=== PATIENT | male | born 1975 | race Caucasian/White ===

== ENCOUNTER 2016-06-12 15:03 | Emergency (ER) | payer OTHER ==
[~2016-06-12] VITALS: Ht 180.3 cm; Wt 93.0 kg
[2016-06-12 15:08] VITALS: BP 138/84
--- NOTE | 2016-06-12 16:03 | ED GENERAL ADULT ---
History of Present Illness General Chief Complaint: Upper Extremity Injury Stated Complaint: RT ARM/SHOULDER PAIN Source: patient Exam Limitations: no limitations Vital Signs & Intake/Output Vital Signs & Intake/Output Vital Signs Date Time Temp Pulse Resp B/P Pulse O2 O2 Flow FiO2 Ox Delivery Rate 06/12 1508 98.7 81 20 138/84 98 Room Air Allergies Uncoded Allergies: POISON YOUNG (10/29/11) Reconcile Medications Meloxicam (Mobic) 15 MG TABLET 1 TAB PO DAILY PRN PAIN Methocarbamol 500 MG TABLET 1 TAB PO DAILY MUSCLE SPASM (Reported) Paroxetine HCl (Paxil) 10 MG TABLET 1 TAB PO DAILY DEPRESSION (Reported) Triage Note: PT STATES HE WAS DRILLING THROUGH [employer] AND CAUGHT REBARB. STATES THE DRILL SPUN HIM AROUND INJURING RIGHT SHOULDER, RIGHT ELBOW AND RIGHT WRIST. NOT WORKERS COMP PER PT Triage Nurses Notes Reviewed? yes Onset: Abrupt Duration: hour(s): Timing: recent history HPI: 06/12/16 41-year-old man who was using a jackhammer, it kicked back and caused sudden severe right shoulder pain. He denies any other complaints. He says that he was using the jackhammer at home. This is not a work related injury. The onset of the symptoms were abrupt, the duration was just today, the severity was significant as his symptoms required him to come to the emergency department for care. On physical exam he has tenderness and decreased range of motion to the right shoulder. X-rays do not show a definite fracture but there is a questionable step off in the glenoid rim. The patient will be placed in a right shoulder immobilizer. He'll follow up with orthopedist this week. Past History Travel History Traveled to [place] past 21 day No Medical History Any Pertinent Medical History? see below for history Psychiatric: anxiety Surgical History Surgical History: non-contributory Psychosocial History What is your primary language Hebrew Tobacco Use: Current Daily Use Daily Tobacco Use Amount/Type: => 5 Cigarettes daily ETOH Use: occasional use Illicit Drug Use: denies illicit drug use Family History Hx Contributory? No Review of Systems Review of Systems Constitutional: Reports: no symptoms. EENTM: Reports: no symptoms. Respiratory: Reports: no symptoms. Cardiovascular: Reports: no symptoms. GI: Reports: no symptoms. Genitourinary: Reports: no symptoms. Musculoskeletal: Reports: see HPI. Skin: Reports: no symptoms. Neurological/Psychological: Reports: no symptoms. Hematologic/Endocrine: Reports: no symptoms. Physical Exam Physical Exam General Appearance: well developed/nourished, alert, awake, anxious, mild distress Head: atraumatic, normal appearance Eyes: Bilateral: normal appearance, PERRL, EOMI. Ears, Nose, Throat: normal pharynx, normal ENT inspection Neck: normal inspection, supple, full range of motion Respiratory: normal breath sounds, chest non-tender, no respiratory distress Cardiovascular: regular rate/rhythm Peripheral Pulses: 4+ radial (R), 4+ radial (L) Back: normal range of motion Extremities: tenderness Neurologic/Psych: no motor/sensory deficits, awake, alert, oriented x 3 Skin: intact, normal color, warm/dry Comments: 06/12/16 The patient was placed in a right shoulder immobilizer. X-ray was significant for a questionable glenoid rim fracture PATIENT: STEPHEN DUMONT PRESENT AGE: 41 PATIENT ACCOUNT NO: [id number] : 73 LOCATION: [facility] ORDERING PHYSICIAN: RENEE BOWLING DO SERVICE DATE: 06/12/16 EXAM TYPE: RAD - XRY-ELBOW 3 OR MORE VIEWS, R; XRY-SHOULDER COMPLETE-RIGHT; XRY- WRIST COMPLETE-RIGHT EXAMINATION: XR RIGHT WRIST, RIGHT SHOULDER AND RIGHT ELBOW CLINICAL INFORMATION: Right upper extremity pain following trauma. COMPARISON: None . TECHNIQUE: Internal rotation, external rotation, transscapular and axillary views of the right shoulder, 5 views in total.. AP, lateral, oblique and navicular views of the right wrist. AP, lateral and bilateral oblique views of the right elbow. FINDINGS: Right shoulder: There is a questionable cortical step-off along the inferior glenoid rim. This finding is nonspecific but could reflect an acute nondisplaced fracture of the inferior glenoid rim versus an osteophyte. No additional definite or suspected fractures of the right shoulder are identified. The right acromioclavicular joint is intact. The visualized portions of the right lung are grossly clear. Right elbow: No acute fracture or dislocation of the right elbow. No significant elbow joint effusion. Right wrist: No acute fracture or dislocation of the right wrist. Carpal alignment appears grossly maintained. The first and second carpal rows are intact. IMPRESSION: 1. Questionable cortical step-off along the inferior glenoid rim. This finding is nonspecific and could reflect a small osteophyte although a nondisplaced fracture within this region cannot be entirely excluded. Consider correlation with a dedicated CT of the right shoulder. 2. No acute fracture or dislocation of the right wrist. 3. No acute fracture or dislocation of the right elbow. DICTATED BY: ALLAN MAYORGA MD DATE/TIME DICTATED:06/12/161551 [employer]ORTS BOOKMAKER:MICHELL DATE/TIME TRANSCRIBED:06/12/161551 CONFIDENTIAL, DO NOT COPY WITHOUT APPROPRIATE AUTHORIZATION. <Electronically signed in Other Vendor System> SIGNED BY: ALLAN MAYORGA MD 06/12/16 160 Core Measures ACS in differential dx? No CVA/TIA Diagnosis: No Severe Sepsis Present: No Septic Shock Present: No Progress Differential Diagnoses I considered the following diagnoses in my evaluation of the patient: [fractutre , Dislocation, sprain] Plan of Care: Orders Procedure Date/time Status Durable Medical Equipment 06/12 1654 Active Initial ED EKG: none Departure Departure Disposition: HOME OR SELF CARE Condition: Stable Clinical Impression Primary Impression: Scapular fracture Referrals: [facility] APRN (PCP/Family) Departure Forms: Customer Survey General Discharge Information Prescriptions: Current Visit Scripts Meloxicam (Mobic) 1 TAB PO DAILY PRN PAIN #10 TAB Critical Care Note Critical Care Note Critical Care Time: non-applicable
[2016-06-12] MEDS ORDERED: PAXIL10 M1 PO (16:10)
[2016-06-12] MEDS ORDERED: METHOCARBAMOL500 M1 PO (16:11)
[2016-06-12] MEDS ORDERED: MOBIC15 M1 PO (17:06)
== END 2016-06-12 17:21 ==
LOC: ERH 15:03
DX: M25.511 Pain in right shoulder (principal)
CPT/HCPCS: 73030-RT; 73080-RT; 73110-RT